=== PATIENT | female | born 1970 | race Caucasian/White ===

== ENCOUNTER 2017-01-12 09:24 | Emergency (ER) | payer OTHER ==
--- NOTE | 2017-01-12 10:09 | UC ---
Shoulder Pain HPI - HPI Summary HPI Summary: The patient comes in today for: 1. Right shoulder pain: Onset: This morning. Palliative/provocative: Resting helps. ABduction makes it worse. Quality: sharp Region: Upper left shoulder/arm. Severity: 3/10 at rest--10/10 with movement. Time: Constant. Associated symptoms: Event: She was carrying a fence section and slipped landing on her left side. Weakness:numbness: She states that she has some numbness of the little right finger. "I want to make sure that nothing is broken." * - History of Current Complaint Chief Complaint: UCUpperExtremity Stated Complaint: RT SHOULDER INJURY Time Seen by Provider: 01/12/17 09:52 Hx Obtained From: Patient Hx Last Menstrual Period: Partial hyst. - Allergies/Home Medications Allergies/Adverse Reactions: Allergies Allergy/AdvReac Type Severity Reaction Status Date / Time No Known Allergies Allergy Verified 01/12/17 09:44 PMH/Surg Hx/FS Hx/Imm Hx Previously Healthy: Yes Endocrine History Of: Denies: Diabetes, Thyroid Disease, Hyperthyroidism, Hypothyroidism, Dyslipidemia Cardiovascular History Of: Denies: Cardiac Disorders, Hypertension, Pacemaker/ICD, Myocardial Infarction , Congestive Heart Failure, Atrial Fibrillation, Deep Vein Thrombosis, Bleeding Disorders Respiratory History Of: Denies: COPD, Asthma, Bronchitis, Pneumonia, Pulmonary Embolism GI/ History Of: Reports: Kidney Stones - Had one kidney stone about 5 years ago. Denies: Gastroesophageal Reflux, Ulcer, Gastrointestinal Bleed, Gall Bladder Disease, Diverticulitis, Renal Disease, Urosepsis Neurological History Of: Denies: TIA, CVA, Dementia, Seizures, Migraine Psychological History Of: Denies: Anxiety, Depression, Bipolar Disorder, Schizophrenia, Post Traumatic Stress Disorder Cancer History Of: Denies: Lung Cancer, Colorectal Cancer, Breast Cancer, Prostate Cancer, Cervical Cancer Other History Of: Negative For: HIV, Hepatitis B, Hepatitis C, Anticoagulant Therapy - Surgical History Surgical History: Yes Surgery Procedure, Year, and Place: Partial hysterectomy - Family History Known Family History: Negative: Cardiac Disease, Hypertension - Social History Occupation: Employed Full-time Alcohol Use: None Substance Use Type: None Smoking Status (MU): Never Smoked Tobacco Household Exposure Type: Cigarettes Review of Systems Constitutional: Negative Skin: Negative Eyes: Negative ENT: Negative Respiratory: Negative Cardiovascular: Negative Gastrointestinal: Negative Genitourinary: Negative All Other Systems Reviewed And Are Negative: Yes Physical Exam Triage Information Reviewed: Yes Appearance: Well-Appearing, No Pain Distress - When she holds her right arm still., Well-Nourished Vital Signs: Initial Vital Signs Temp 98.3 F 01/12/17 09:35 Pulse 82 01/12/17 09:35 Resp 18 01/12/17 09:35 BP 166/93 01/12/17 09:35 Pulse Ox 100 01/12/17 09:35 Vital Signs Reviewed: Yes Eyes: Positive: Conjunctiva Clear. Negative: Discharge ENT: Positive: Hearing grossly normal. Negative: Pharyngeal erythema, Nasal congestion, Nasal drainage, TM bulging, TM dull, TM red, Tonsillar swelling, Tonsillar exudate Dental: Negative: Gross Decay/Caries @, Dental Fracture @ Neck: Positive: Supple, Nontender, No Lymphadenopathy. Negative: Nuchal Rigidity Respiratory: Positive: Chest non-tender, Lungs clear, No respiratory distress, No accessory muscle use. Negative: Rhonchi, Wheezing Cardiovascular: Positive: RRR, No Murmur Abdomen Description: Positive: Nontender, No Organomegaly, Soft. Negative: Distended, Guarding Musculoskeletal: Positive: No Edema, ROM Limited @ - Right shoulder: No ecchymosis. No swelling. There is tenderness to palpation over the biceps tendon area and below the AC joint. There is decreased active abduction, but there is more with passive abduction. The three tests for nerve fuction (ulnar , radia, and median) were normal. DTR were 1+/2 x 2 bilaterally.. Negative: ROM Intact Neurological: Positive: Alert, Muscle Tone Normal Psychological: Positive: Age Appropriate Behavior, Consolable Skin: Negative: rashes, breakdown Diagnostics - Radiology No standard instances Xray Interpretation: No Acute Changes Radiology Interpretation Completed By: Radiologist Shoulder Course/Dx - Differential Dx/Diagnosis Provider Diagnoses: hypertension. Right shoulder pain/contusion Discharge - Discharge Plan Condition: Stable Disposition: HOME Patient Education Materials: Shoulder Pain (ED), Contusion in Adults (ED) Referrals: Swathi Reynolds MD [Primary Care Provider] - 1 Week (Please take the medications as directed and see your primary care provider later this week for re-evaluation. IF you get worse, please be seen sooner. )
--- NOTE | 2017-01-12 10:23 | RAD ---
INDICATION: Right shoulder injury. TECHNIQUE: 3 views of the right shoulder were obtained. FINDINGS: The bones are in normal alignment. No fracture is seen. There is a small calcific density adjacent to the superior lateral aspect of the humeral head suggestive of calcific tendinitis. Joint spaces appear maintained. IMPRESSION: NO EVIDENCE OF FRACTURE.
== END 2017-01-12 10:44 | disposition home or self-care (01) ==
LOC: UCEAST 09:24
DX: S40.011A Contusion of right shoulder, initial encounter (principal); M25.511 Pain in right shoulder; W01.0XXA Fall on same level from slipping, tripping and stumbling without subsequent striking against object, initial encounter; I10 Essential (primary) hypertension
CPT/HCPCS: 99203; G0463

== ENCOUNTER 2017-05-06 21:48 | Emergency (ER) | payer OTHER ==
[2017-05-06] MEDS ORDERED: Ketorolac INJ* 60 MG/2 ML VIAL IM ONE (22:26)
[2017-05-06] MEDS ORDERED: Ondansetron ODT TAB* 4 MG PO ONE (22:26)
--- NOTE | 2017-05-06 22:39 | UC ---
Misty Celaya Edward, scribed for Jhonatan Humphreys MD on 05/06/17 at 2151 . Complaint Female HPI - HPI Summary HPI Summary: 46 y/o female presents to [facility] c/o gradual onset severe right flank pain starting around an hour and a half ago. The pain radiates to the ABD. She is certain she has a kidney stone as the symptoms are the same. Pain is alleviated with certain positions. Pain is aggravated with deep breaths. Associated sx: burning with urination, urinary urgency. Denies fever/chills, N/V. PMHx kidney stones 4-5 years ago. NKDA. - History Of Current Complaint Stated Complaint: ABD & BACK PAIN Hx Obtained From: Patient Hx Last Menstrual Period: Partial hyst. Onset/Duration: Gradual Onset, Lasting Hours, Still Present Timing: Constant Associated Signs And Symptoms: Positive: Back Pain. Negative: Fever, Nausea, Vomiting(# Of Episodes =) - Allergies/Home Medications Allergies/Adverse Reactions: Allergies Allergy/AdvReac Type Severity Reaction Status Date / Time No Known Allergies Allergy Verified 01/12/17 09:44 Home Medications: Home Medications NK [No Home Medications Reported] 05/06/17 [History Confirmed 05/06/17] PMH/Surg Hx/FS Hx/Imm Hx Previously Healthy: No GI/ History: Kidney Stones Other History Of: Negative For: HIV, Hepatitis B, Hepatitis C, Anticoagulant Therapy - Surgical History Surgical History: Yes Surgery Procedure, Year, and Place: Partial hysterectomy - Family History Known Family History: Negative: Cardiac Disease, Hypertension - Social History Lives: With Family Alcohol Use: None Substance Use Type: None Smoking Status (MU): Never Smoked Tobacco Household Exposure Type: Cigarettes Review of Systems Constitutional: Negative - No fever/chills Skin: Negative Eyes: Negative ENT: Negative Respiratory: Negative Cardiovascular: Negative Gastrointestinal: Negative - No N/V Genitourinary: Dysuria - Burning with urination, Urgency, Other - Flank pain Motor: Negative Neurovascular: Negative Musculoskeletal: Negative Neurological: Negative Psychological: Negative All Other Systems Reviewed And Are Negative: Yes Physical Exam Triage Information Reviewed: Yes Vital Signs: Initial Vital Signs Temp 98.6 F 05/06/17 21:51 Pulse 80 05/06/17 21:51 Resp 20 05/06/17 21:51 Pulse Ox 100 05/06/17 21:51 Vital Signs Reviewed: Yes - Additional Comments The patient is well-nourished in no acute distress and in no acute pain. The skin is warm and dry and skin color reflects adequate perfusion. HEENT: The head is normocephalic and atraumatic. The pupils are equal and reactive. The conjunctivae are clear and without drainage. Nares are patent and without drainage. Mouth reveals moist mucous membranes and the throat is without erythema and exudate. The external ears are intact. The ear canals are patent and without drainage. The tympanic membranes are intact. Neck is supple with full range of motion and non-tender. There are no carotid bruits. There is no neck vein distension. Respiratory: Chest is non-tender. Lungs are clear to auscultation and breath sounds are symmetrical and equal. Cardiovascular: Hear is regular rate and rhythm. There is no murmur or rub auscultated. There is no peripheral edema and pulses are symmetrical and equal. Abdomen: The abdomen is soft. There is R CVA tenderness. There are normal bowel sounds heard in all four quadrants and there is no organomegaly palpated. Musculoskeletal: There is no back pain noted. Extremities are non-tender with full range of motion. There is good capillary refill. There is no peripheral edema or calf tenderness elicited. Neurological: Patient is alert and oriented to person, place and time. The patient has symmetrical motor strength in all four extremities. Cranial nerves are grossly intact. Deep tendon reflexes are symmetrical and equal in all four extremities. Psychiatric: The patient has an appropriate affect and does not exhibit any anxiety or depression. Complaint Female Dx - Course Course Of Treatment: 46 y/o female presents to [facility] c/o gradual onset severe right flank pain starting around an hour and a half ago. The pain radiates to the ABD. She is certain she has a kidney stone as the symptoms are the same. Pain is alleviated with certain positions. Pain is aggravated with deep breaths. Associated sx: burning with urination, urinary urgency. Denies fever/ chills, N/V. PMHx kidney stones 4-5 years ago. NKDA. Urine shows blood. Pt wants a shot of Toradol in the [facility]. Pt will be d/c home and instructed to go to the ED for further workup. - Differential Dx/Diagnosis Differential Diagnosis/HQI/PQRI: Ureteral Stone, Urinary Tract Infection, Other - Kidney stone, hematuria Provider Diagnoses: R renal colic Discharge - Discharge Plan Condition: Stable Disposition: HOME Patient Education Materials: Renal Colic (ED) Referrals: Swathi Reynolds MD [Primary Care Provider] - Additional Instructions: Please go to the ED for further workup The documentation as recorded by the Misty maria Edward accurately reflects the service I personally performed and the decisions made by me, Jhonatan Humphreys MD.
== END 2017-05-06 22:50 | disposition home or self-care (01) ==
LOC: UCEAST 21:48
DX: N23 Unspecified renal colic (principal); Z87.442 Personal history of urinary calculi
CPT/HCPCS: 81003; 96372; 99212; A9270-GY; G0463; J1885

== ENCOUNTER 2017-05-06 23:05 | Emergency (ER) | payer OTHER ==
[2017-05-06] MEDS ORDERED: NS 0.9% 1000 ML* 1,000 ML IV ONE (23:36)
[2017-05-07 00:10] LABS: Hematocrit 40 % (35-47); Hemoglobin 13.4 g/dl (12.0-16.0); Mean Corpuscular HGB Conc 34 g/dl (31-36); Mean Corpuscular Hemoglobin 31 pg (27-31); Mean Corpuscular Volume 91 fL (80-97); Mean Platelet Volume 10 um3 (7.4-10.4); Red Cell Distribution Width 13 % (10.5-15); White Blood Count 9.5 10^3/ul (3.5-10.8)
[2017-05-07 00:18] LABS: ALT 20 U/L (7-52); AST 19 U/L (13-39); Albumin 4.3 g/dL (3.2-5.2); Alkaline Phosphatase 48 U/L (34-104); Anion Gap 7 mmol/L (2-11); BUN/Creatinine Ratio 15.5 (8-20); Blood Urea Nitrogen 15 mg/dL (6-24); C Reactive Protein 1.38 mg/L (< 5.00); CO2 Carbon Dioxide 24 mmol/L (22-32); Calcium 9.2 mg/dL (8.6-10.3); Chloride 106 mmol/L (101-111); EGFR African American 79.2 (>60); EGFR Non-African American 61.6 (>60); Globulin 2.4 g/dL (2-4); Glucose 133 mg/dL (70-100); Lipase 36 U/L (11.0-82.0); Potassium 3.5 mmol/L (3.5-5.0); Sodium 137 mmol/L (133-145); Total Protein 6.7 g/dL (6.4-8.9)
--- NOTE | 2017-05-07 00:32 | ED ---
Simi Celaya SooYoung, scribed for Jostin Ramos MD on 05/06/17 at 2337 . Abdominal Pain/Female - HPI Summary HPI Summary: A 46 y/o F referred [place] [facility] [place] presents to ED with c/o R sided abd pain radiating to back onset approx 194. Denies fever. Initially, she thought it was a UTI but as the pain continued and radiated to her back, now, she thinks it 's a kidney stone, which she last had 5 years ago. Pt received Zofran and Toradol [place] [facility]. - History of Current Complaint Chief Complaint: EDFlankPain Stated Complaint: RT FLANK PAIN Time Seen by Provider: 05/06/17 23:34 Hx Obtained From: Patient Hx Last Menstrual Period: Partial hyst. Onset/Duration: Lasting Hours, Still Present Timing: Constant Severity Initially: Moderate Severity Currently: Severe Pain Intensity: 9 Pain Scale Used: 0-10 Numeric Radiates: Yes Radiates to: Back Associated Signs and Symptoms: Negative: Fever Allergies/Adverse Reactions: Allergies Allergy/AdvReac Type Severity Reaction Status Date / Time No Known Allergies Allergy Verified 01/12/17 09:44 PMH/Surg Hx/FS Hx/Imm Hx Previously Healthy: No Endocrine/Hematology History: Denies: Hx Anticoagulant Therapy, Hx Diabetes, Hx Thyroid Disease Cardiovascular History: Denies: Hx Congestive Heart Failure, Hx Deep Vein Thrombosis, Hx Hypertension , Hx Myocardial Infarction, Hx Pacemaker/ICD Respiratory History: Denies: Hx Asthma, Hx Chronic Obstructive Pulmonary Disease (COPD), Hx Lung Cancer, Hx Pneumonia, Hx Pulmonary Embolism GI History: Denies: Hx Gall Bladder Disease, Hx Gastrointestinal Bleed, Hx Ulcer, Hx Urosepsis History: Reports: Hx Kidney Stones - Had one kidney stone about 5 years ago. Denies: Hx Renal Disease Neurological History: Denies: Hx Dementia, Hx Migraine, Hx Seizures, Hx Transient Ischemic Attacks (TIA) Psychiatric History: Denies: Hx Anxiety, Hx Depression, Hx Schizophrenia, Hx Bipolar Disorder, Hx Substance Abuse - Surgical History Surgery Procedure, Year, and Place: Partial hysterectomy Infectious Disease History: No Infectious Disease History: Denies: Hx Clostridium Difficile, Hx Hepatitis, Hx Human Immunodeficiency Virus (HIV), Hx of Known/Suspected MRSA, Hx Shingles, Hx Tuberculosis, Hx Known/ Suspected VRE, Hx Known/Suspected VRSA, History Other Infectious Disease, Traveled Outside the [place] in Last 30 Days - Family History Known Family History: Negative: Cardiac Disease, Hypertension - Social History Occupation: Unemployed - OTHER Lives: With Family Alcohol Use: None Hx Substance Use: No Substance Use Type: Reports: None Hx Tobacco Use: No Smoking Status (MU): Never Smoked Tobacco Review of Systems Negative: Fever Positive: Abdominal Pain Positive: flank pain All Other Systems Reviewed And Are Negative: Yes Physical Exam Triage Information Reviewed: Yes Vital Signs On Initial Exam: Initial Vitals Temp Pulse Resp BP Pulse Ox 97.7 F 71 18 182/85 98 05/06/17 23:10 05/06/17 23:10 05/06/17 23:10 05/06/17 23:10 05/06/17 23:10 Vital Signs Reviewed: Yes Appearance: Positive: Well-Appearing, Pain Distress - mild discomfort Skin: Positive: Warm Head/Face: Positive: Normal Head/Face Inspection Eyes: Positive: SIMON ENT: Positive: Hearing grossly normal Neck: Positive: Supple Respiratory/Lung Sounds: Positive: Breath Sounds Present Cardiovascular: Positive: RRR Abdomen Description: Positive: Nontender, No Organomegaly, Soft. Negative: CVA Tenderness (R), CVA Tenderness (L) Bowel Sounds: Positive: Present Musculoskeletal: Positive: Strength/ROM Intact Neurological: Positive: Alert, Oriented to Person Place, Time Psychiatric: Positive: Affect/Mood Appropriate Diagnostics - Vital Signs Vital Signs Temp Pulse Resp BP Pulse Ox 05/06/17 23:10 97.7 F 71 18 182/85 98 - Laboratory Result Diagrams: 05/07/17 00:00 05/07/17 00:00 Lab Statement: Any lab studies that have been ordered have been reviewed, and results considered in the medical decision making process. - CT ABD/PEL CT CT Interpretation: Positive (See Comments) - IMPRESSION: Obstructing calculus in the right UVJ. CT Interpretation Completed By: Radiologist Re-Evaluation - Re-Evaluation 1 Re-Evaluation Time: 00:55 Change: Improved Comment: Discussing results and dispo with pt. Pt voiced understanding. Abdominal Pain Fem Course/Dx - Course Course Of Treatment: Pt is a 46 y/o F referred by [facility] [place] presenting with R sided abd pain radiating to back onset approx 1945. Denies fever. Initially, she thought it was a UTI but as the pain continued and radiated to her back, she thinks it's a kidney stone, which she last had 5 years ago. Pt received Zofran and Toradol at [facility]. Pt given fluids in ED. Blood work results are without significant abnormalities. UA results show + blood, 3+ RBC, 1+ bacteria, 1+ glucose, trace leukocyte esterase, and squamous epithelia present. A/P CT shows obstructing calculus in the right UVJ. Will D/C home with Flomax , to f/u with urology tomorrow. - Diagnoses Provider Diagnoses: Renal colic Discharge - Discharge Plan Condition: Stable Disposition: HOME Prescriptions: Tamsulosin CAP* [Flomax CAP*] 0.4 mg PO BEDTIME #7 cap Patient Education Materials: Renal Colic (ED), Tamsulosin (By mouth) Referrals: Swathi Reynolds MD [Primary Care Provider] - Carlitos Butterfield MD [Medical Doctor] - 1 Day Additional Instructions: Follow up with Dr. Butterfield, urology, tomorrow. Please return to the ED if you experience new or worsening symptoms. The documentation as recorded by the Simi maria SooYoung accurately reflects the service I personally performed and the decisions made by me, Jostin Ramos MD.
[2017-05-07 00:34] LABS: Urine Bacteria 1+ (Absent); Urine Bilirubin Negative (Negative); Urine Glucose 1+(50 mg/dL) (Negative); Urine Nitrite Negative (Negative)
[2017-05-07] MEDS ORDERED: oxyCODONE/Acetamin 5/325 MG* TAB PO ONE (00:56)
[2017-05-07 01:06] VITALS: BP 144/90
--- NOTE | 2017-05-07 07:48 | RAD ---
CLINICAL HISTORY: Right flank pain COMPARISON: October 10, 2010 TECHNIQUE: Multiple contiguous axial CT scans were obtained of the abdomen and pelvis, without intravenous contrast enhancement. Coronal and sagittal multiplanar reformations are submitted for review. Oral contrast was not administered. FINDINGS: The study is limited by the lack of intravenous contrast. This limits evaluation of the solid organs and vasculature. LUNG BASES: The lung bases are clear. LIVER: The liver is diffusely low in attenuation compared to the spleen. There are no focal hepatic parenchymal masses. The liver measures 21 cm in long axis. BILE DUCTS: There is no intrahepatic or extrahepatic biliary dilatation. GALLBLADDER: The gallbladder is collapsed and is not well evaluated. PANCREAS: The pancreas is normal, without mass or ductal dilatation. SPLEEN: Normal in size and appearance. UPPER GI TRACT: Evaluation of the gastrointestinal tract is limited by incomplete gastric distention. The upper GI tract is unremarkable. SMALL BOWEL AND MESENTERY: The small bowel is normal in contour, course, and caliber. There is no obstruction or dilatation. COLON: The colon is normal in contour, course, caliber. There is no pericolonic inflammatory change. ADRENALS: Normal bilaterally. KIDNEYS: There is a 0.2 cm calculus of the right UVJ. There is pelviectasis with moderate hydroureter. BLADDER: The bladder is incompletely distended and is not well evaluated. PELVIC ORGANS: The pelvic organs are not visualized. AORTA: There is calcific atherosclerotic disease of the abdominal aorta and its branches, without aneurysmal dilatation IVC: Unremarkable LYMPH NODES: There is no lymphadenopathy by size criteria. ABDOMINAL WALL: There is no evidence for abdominal wall hernia. BONES AND SOFT TISSUES: There are mild diffuse degenerative changes. OTHER: None IMPRESSION: 0.2 CM RIGHT UVJ CALCULUS WITH RIGHT-SIDED HYDRONEPHROSIS. HEPATOMEGALY WITH FATTY INFILTRATION OF LIVER.
--- NOTE | 2017-05-09 09:14 | PN ---
Progress Note - Progress Note Date of Service: 05/09/17 Note: Patient urine culture grew yeast 1-10,000. likely contaminate and patient not immune compromised so will no treat.
== END 2017-05-07 01:20 | disposition home or self-care (01) ==
LOC: ED 23:05
DX: N23 Unspecified renal colic (principal); R10.84 Generalized abdominal pain
CPT/HCPCS: 36415; 74176; 80053; 81003; 81015; 83690; 84702; 85025; 86140; 87086; 87106; 99283; A9270-GY